=== PATIENT | female | born 1955 ===

== ENCOUNTER 2020-05-09 10:36 | Inpatient (IN) ==
[2020-05-09] MEDS ORDERED: Acetaminophen 325 MG TABLET PO ONE (11:07)
[2020-05-09] MEDS ORDERED: predniSONE 20 MG TABLET PO ONE (11:11)
[2020-05-09] MEDS ORDERED: 0.9 % Sodium Chloride 1,000 ML IVC SCH (11:15)
[2020-05-09 11:23] LABS: Basophils % 0.2 %; Eosinophils # 0.1 K/mcL (0.0-0.6); Eosinophils % 0.9 %; Hematocrit 39.7 % (35.3-44.9); Hemoglobin 12.8 g/dL (11.5-15.4); Immature Granulocytes % 0.4 % (0-4); Lymphocytes # 1.7 K/mcL (0.6-4.6); Lymphocytes % 11.9 %; Mean Corpuscular HGB Conc 32.2 g/dL (31.6-35.5); Mean Corpuscular Hemoglobin 29.7 pg (28.0-33.3); Mean Corpuscular Volume 92.1 fL (83.0-100.0); Mean Platelet Volume 9.6 fL (9.4-12.4); Monocytes # 1.3 K/mcL (0.0-1.3); Monocytes % 9.1 %; Neutrophils # 10.9 K/mcL (1.6-8.9); Platelet Count 260 K/mcL (140-400); Red Blood Count 4.31 M/mcL (3.82-4.97); Red Cell Distribution Width 12.5 % (11.5-14.5); Segmented Neutrophils % 77.5 %
[2020-05-09] MEDS ORDERED: Azithromycin 500 MG in 0.9 % Sodium Chloride 250 ML IVPB ONE (11:26)
[2020-05-09] MEDS ORDERED: cefTRIAXone 1,000 MG in Water for inj. (sterile) 10 ML IVP ONE (11:26)
[2020-05-09 11:31] LABS: INR 1.4; Prothrombin Time 16.4 Seconds (9.4-12.1)
[2020-05-09 11:34] LABS: Activated Partial Thrombo Time 28.4 Seconds (26.0-36.0)
[2020-05-09 11:43] LABS: Alanine Aminotransferase 10 Units/L (7-52); Albumin 3.9 g/dL (3.5-5.7); Albumin/Globulin Ratio 1.3 (1.1-2.2); Alkaline Phosphatase 57 Units/L (34-104); Aspartate Amino Transferase 13 Units/L (13-39); BUN/Creatinine Ratio 16 (6-26); Bilirubin,Direct 0.3 mg/dL (0.0-0.2); Bilirubin,Total 1.3 mg/dL (0.3-1.0); Blood Urea Nitrogen 9 mg/dL (8-23); Calcium 8.9 mg/dL (8.6-10.3); Carbon Dioxide 28 mEq/L (23-29); Chloride 99 mEq/L (98-107); Glucose 152 mg/dL (70-105); Magnesium 1.8 mg/dL (1.6-2.6); Osmolality,Calculated 282 (280-300); Phosphorous 2.3 mg/dL (2.7-4.5); Potassium 3.8 mEq/L (3.5-5.1); Sodium 135 mEq/L (136-145); eGFR For African Americans > 60 (> 60); eGFR For Non-African Americans > 60 (> 60)
[2020-05-09 11:44] LABS: Globulin 3.1 g/dL (2.4-3.5); Troponin I 0.05 ng/mL (< 0.04)
[2020-05-09] MEDS ORDERED: Aspirin 81 MG TAB.CHEW PO ONE (11:46)
[2020-05-09] MEDS ORDERED: 0.9 % Sodium Chloride 1,000 ML IVC ONE (11:46)
[2020-05-09] MEDS ORDERED: 0.9 % Sodium Chloride 250 ML ONE (11:48)
[2020-05-09 12:12] LABS: Bacteria,Urine Few per hpf (None-Few); Bilirubin,Urine Negative (Negative); Blood,Urine Small (Negative); Clarity,Urine Clear (Clear); Color,Urine Light-Orange (Yellow); Glucose,Urine (UA) 30 mg/dL (Normal); Ketones,Urine Negative (Negative); Leukocyte Esterase,Urine Negative (Negative); Mucus,Urine Many per lpf (None-Few); Nitrite,Urine Negative (Negative); Protein,Urine 50 mg/dL (Neg-Trace); Specific Gravity,Urine 1.025 (1.010-1.025); Squamous Epithelial Cell,Urine Few per hpf (None-Few)
[2020-05-09 13:33] LABS: Adenovirus Not Detected (Not Detect); Coronavirus 229E Not Detected (Not Detect); Coronavirus HKU1 Not Detected (Not Detect); Coronavirus NL63 Not Detected (Not Detect); Coronavirus OC43 Not Detected (Not Detect); Human Metapneumovirus Not Detected (Not Detect); Human Rhinovirus/Enterovirus Not Detected (Not Detect); Influenza A Subtype 2009 H1 Not Detected (Not Detect); Influenza B Not Detected (Not Detect); Parainfluenza Virus 1 Not Detected (Not Detect); Parainfluenza Virus 2 Not Detected (Not Detect); Parainfluenza Virus 3 Not Detected (Not Detect)
[2020-05-09 13:34] LABS: Bordetella Pertussis Not Detected (Not Detect); Chlamydophila pneumoniae Not Detected (Not Detect); Mycoplasma pneumoniae Not Detected (Not Detect); Parainfluenza Virus 4 Not Detected (Not Detect); Respiratory Syncytial Virus Not Detected (Not Detect)
[2020-05-09] MEDS ORDERED: Naloxone 0.4 MG/ML INJ IVP PRN (13:42)
[2020-05-09] MEDS ORDERED: Dextrose Gel 15 GM/37.5 ML TUBE PO PRN ×2 (13:50)
[2020-05-09] MEDS ORDERED: D5% in Water 1,000 ML IVC PRN (13:50)
[2020-05-09] MEDS ORDERED: *HR* Dextrose 50 % in Water (Vial) 50 ML VIAL IVP PRN (13:50)
[2020-05-09] MEDS ORDERED: Acetaminophen 325 MG TABLET PO PRN (13:50)
[2020-05-09 15:12] LABS: Estimated Average Glucose 137 mg/dl
[2020-05-09] MEDS: 0.9 % Sodium Chloride 1,000 ML IVC SCH (15:23)
[2020-05-09] MEDS: Ipratropium/Albuterol Neb 3 ML IH SCH ×3 (15:35→23:16)
[2020-05-09] MEDS: *HR* Heparin 5,000 UNIT/ML VIAL SQ SCH (18:03)
[2020-05-09] MEDS: Insulin LISPRO 300 UNITS/3 ML VIAL SQ SCH ×2 (18:03→21:39)
[2020-05-09] MEDS: traZODone 50 MG TABLET PO SCH (21:39)
[2020-05-10] MEDS: Ipratropium/Albuterol Neb 3 ML IH SCH ×6 (03:24→23:34)
[2020-05-10] MEDS: 0.9 % Sodium Chloride 1,000 ML IVC SCH (05:02)
[2020-05-10] MEDS: *HR* Heparin 5,000 UNIT/ML VIAL SQ SCH ×2 (05:02→17:18)
[2020-05-10 06:41] LABS: Basophils % 0.1 %; Eosinophils % 0.4 %; Hematocrit 36.8 % (35.3-44.9); Hemoglobin 11.3 g/dL (11.5-15.4); Immature Granulocytes % 0.5 % (0-4); Lymphocytes # 1.3 K/mcL (0.6-4.6); Lymphocytes % 16.6 %; Mean Corpuscular HGB Conc 30.7 g/dL (31.6-35.5); Mean Corpuscular Hemoglobin 28.6 pg (28.0-33.3); Mean Corpuscular Volume 93.2 fL (83.0-100.0); Mean Platelet Volume 9.4 fL (9.4-12.4); Monocytes # 0.6 K/mcL (0.0-1.3); Monocytes % 7.6 %; Neutrophils # 5.8 K/mcL (1.6-8.9); Platelet Count 207 K/mcL (140-400); Red Blood Count 3.95 M/mcL (3.82-4.97); Red Cell Distribution Width 12.4 % (11.5-14.5); Segmented Neutrophils % 74.8 %; White Blood Count 7.8 K/mcL (4.3-11.1)
[2020-05-10 07:01] LABS: Alanine Aminotransferase 10 Units/L (7-52); Albumin 3.4 g/dL (3.5-5.7); Albumin/Globulin Ratio 1.2 (1.1-2.2); Alkaline Phosphatase 58 Units/L (34-104); Aspartate Amino Transferase 12 Units/L (13-39); BUN/Creatinine Ratio 18 (6-26); Bilirubin,Total 0.5 mg/dL (0.3-1.0); Blood Urea Nitrogen 8 mg/dL (8-23); Calcium 8.5 mg/dL (8.6-10.3); Carbon Dioxide 25 mEq/L (23-29); Chloride 107 mEq/L (98-107); Globulin 2.8 g/dL (2.4-3.5); Glucose 124 mg/dL (70-105); Magnesium 2.1 mg/dL (1.6-2.6); Osmolality,Calculated 292 (280-300); Phosphorous 2.7 mg/dL (2.7-4.5); Potassium 3.9 mEq/L (3.5-5.1); Sodium 141 mEq/L (136-145); Total Protein 6.2 g/dL (6.4-8.9); eGFR For African Americans > 60 (> 60); eGFR For Non-African Americans > 60 (> 60)
[2020-05-10] MEDS: Insulin LISPRO 300 UNITS/3 ML VIAL SQ SCH ×4 (07:33→21:39)
[2020-05-10] MEDS: cefTRIAXone 1,000 MG in Water for inj. (sterile) 10 ML IVP SCH (08:02)
[2020-05-10] MEDS: Azithromycin 250 MG TABLET PO SCH (08:04)
[2020-05-10] MEDS: predniSONE 20 MG TABLET PO SCH (08:04)
[2020-05-10] MEDS ORDERED: predniSONE 10 MG TABLET PO SCH (09:00)
[2020-05-10] MEDS: Budesonide/Formoterol 80/4.5 1 PUFF INH IH SCH (20:06)
[2020-05-10] MEDS: traZODone 50 MG TABLET PO SCH (21:38)
[2020-05-11] MEDS: Ipratropium/Albuterol Neb 3 ML IH SCH ×6 (04:01→23:32)
[2020-05-11 05:39] LABS: White Blood Count 9.5 K/mcL (4.3-11.1)
[2020-05-11 05:40] LABS: Basophils % 0.2 %; Eosinophils # 0.1 K/mcL (0.0-0.6); Eosinophils % 0.8 %; Hemoglobin 11.3 g/dL (11.5-15.4); Immature Granulocytes % 0.5 % (0-4); Lymphocytes # 2.4 K/mcL (0.6-4.6); Lymphocytes % 25.8 %; Mean Corpuscular HGB Conc 31.4 g/dL (31.6-35.5); Mean Corpuscular Hemoglobin 29.1 pg (28.0-33.3); Mean Corpuscular Volume 92.8 fL (83.0-100.0); Mean Platelet Volume 9.3 fL (9.4-12.4); Monocytes # 0.8 K/mcL (0.0-1.3); Neutrophils # 6.1 K/mcL (1.6-8.9); Platelet Count 254 K/mcL (140-400); Red Blood Count 3.88 M/mcL (3.82-4.97); Red Cell Distribution Width 12.5 % (11.5-14.5); Segmented Neutrophils % 64.7 %
[2020-05-11 05:56] LABS: BUN/Creatinine Ratio 24 (6-26); Blood Urea Nitrogen 12 mg/dL (8-23); Carbon Dioxide 24 mEq/L (23-29); Chloride 108 mEq/L (98-107); Glucose 88 mg/dL (70-105); Osmolality,Calculated 291 (280-300); Potassium 3.4 mEq/L (3.5-5.1); Sodium 141 mEq/L (136-145); eGFR For African Americans > 60 (> 60); eGFR For Non-African Americans > 60 (> 60)
[2020-05-11] MEDS: *HR* Heparin 5,000 UNIT/ML VIAL SQ SCH ×2 (06:12→16:50)
[2020-05-11] MEDS: Budesonide/Formoterol 80/4.5 1 PUFF INH IH SCH ×2 (07:29→19:50)
[2020-05-11] MEDS: Azithromycin 250 MG TABLET PO SCH (08:23)
[2020-05-11] MEDS: predniSONE 20 MG TABLET PO SCH (08:24)
[2020-05-11] MEDS: cefTRIAXone 1,000 MG in Water for inj. (sterile) 10 ML IVP SCH (08:24)
[2020-05-11] MEDS: Insulin LISPRO 300 UNITS/3 ML VIAL SQ SCH ×4 (08:28→21:26)
[2020-05-11] MEDS: traZODone 50 MG TABLET PO SCH (21:23)
[2020-05-12] MEDS: Ipratropium/Albuterol Neb 3 ML IH SCH ×2 (03:46→07:20)
[2020-05-12 04:54] LABS: Basophils % 0.3 %; Eosinophils % 0.6 %; Hematocrit 35.5 % (35.3-44.9); Immature Granulocytes % 1.1 % (0-4); Lymphocytes # 1.7 K/mcL (0.6-4.6); Lymphocytes % 23.8 %; Mean Corpuscular Hemoglobin 28.2 pg (28.0-33.3); Mean Platelet Volume 9.1 fL (9.4-12.4); Monocytes # 0.4 K/mcL (0.0-1.3); Neutrophils # 4.8 K/mcL (1.6-8.9); Platelet Count 228 K/mcL (140-400); Red Cell Distribution Width 12.7 % (11.5-14.5); Segmented Neutrophils % 68.2 %
[2020-05-12 05:14] LABS: BUN/Creatinine Ratio 22 (6-26); Blood Urea Nitrogen 11 mg/dL (8-23); Calcium 8.6 mg/dL (8.6-10.3); Carbon Dioxide 22 mEq/L (23-29); Chloride 108 mEq/L (98-107); Glucose 116 mg/dL (70-105); Osmolality,Calculated 292 (280-300); Potassium 3.3 mEq/L (3.5-5.1); Sodium 141 mEq/L (136-145); eGFR For African Americans > 60 (> 60); eGFR For Non-African Americans > 60 (> 60)
[2020-05-12] MEDS: *HR* Heparin 5,000 UNIT/ML VIAL SQ SCH (05:45)
[2020-05-12] MEDS: Budesonide/Formoterol 80/4.5 1 PUFF INH IH SCH ×2 (07:20→19:56)
[2020-05-12] MEDS: Insulin LISPRO 300 UNITS/3 ML VIAL SQ SCH ×4 (08:14→20:28)
[2020-05-12] MEDS: Azithromycin 250 MG TABLET PO SCH (08:28)
[2020-05-12] MEDS: predniSONE 20 MG TABLET PO SCH (08:28)
[2020-05-12] MEDS: cefTRIAXone 1,000 MG in Water for inj. (sterile) 10 ML IVP SCH (08:29)
[2020-05-12] MEDS ORDERED: Potassium Phosphate 44 MEQ in 0.9 % Sodium Chloride 250 ML IVPB ONE (08:51)
[2020-05-12] MEDS ORDERED: Ipratropium/Albuterol Neb 3 ML IH PRN (10:08)
[2020-05-12 10:18] LABS: Magnesium 2.1 mg/dL (1.6-2.6)
[2020-05-12] MEDS ORDERED: Perflutren Lipid Microsphere 1.3 ML in 0.9 % Sodium Chloride 8.7 ML IVP PRN (11:01)
[2020-05-12] MEDS ORDERED: Isovue-370 500 ML BOTTLE IVP ONE (13:35)
[2020-05-12] MEDS ORDERED: Furosemide 40 MG/4 ML VIAL IVP ONE (15:46)
[2020-05-12] MEDS ORDERED: Nitroglycerin 0.4 MG TAB.SUBL SL PRN (16:09)
[2020-05-12] MEDS ORDERED: Aspirin 325 MG TABLET PO ONE (16:11)
[2020-05-12] MEDS: *HR* Enoxaparin 100 MG/ML SYRINGE SQ SCH (18:17)
[2020-05-12] MEDS: traZODone 50 MG TABLET PO SCH (20:32)
[2020-05-12] MEDS ORDERED: Furosemide 20 MG TABLET PO ONE (22:00)
[2020-05-13 02:01] LABS: Basophils % 0.4 %; Eosinophils # 0.1 K/mcL (0.0-0.6); Eosinophils % 0.7 %; Hemoglobin 11.4 g/dL (11.5-15.4); Immature Granulocytes % 1.3 % (0-4); Lymphocytes # 2.5 K/mcL (0.6-4.6); Lymphocytes % 27.2 %; Mean Corpuscular HGB Conc 30.8 g/dL (31.6-35.5); Mean Corpuscular Hemoglobin 28.4 pg (28.0-33.3); Mean Platelet Volume 9.2 fL (9.4-12.4); Monocytes # 0.7 K/mcL (0.0-1.3); Monocytes % 7.5 %; Neutrophils # 5.7 K/mcL (1.6-8.9); Platelet Count 282 K/mcL (140-400); Red Blood Count 4.02 M/mcL (3.82-4.97); Red Cell Distribution Width 12.6 % (11.5-14.5); Segmented Neutrophils % 62.9 %; White Blood Count 9.1 K/mcL (4.3-11.1)
[2020-05-13 02:19] LABS: BUN/Creatinine Ratio 23 (6-26); Blood Urea Nitrogen 14 mg/dL (8-23); Carbon Dioxide 29 mEq/L (23-29); Chloride 104 mEq/L (98-107); Glucose 107 mg/dL (70-105); Osmolality,Calculated 295 (280-300); Potassium 3.6 mEq/L (3.5-5.1); Sodium 142 mEq/L (136-145); eGFR For African Americans > 60 (> 60); eGFR For Non-African Americans > 60 (> 60)
[2020-05-13] MEDS: *HR* Enoxaparin 100 MG/ML SYRINGE SQ SCH ×2 (06:13→17:00)
[2020-05-13] MEDS: Budesonide/Formoterol 80/4.5 1 PUFF INH IH SCH ×2 (07:23→19:58)
[2020-05-13] MEDS: Insulin LISPRO 300 UNITS/3 ML VIAL SQ SCH ×4 (08:02→21:09)
[2020-05-13] MEDS: predniSONE 20 MG TABLET PO SCH (08:03)
[2020-05-13] MEDS: Furosemide 40 MG TABLET PO SCH ×2 (08:04→21:13)
[2020-05-13] MEDS: Azithromycin 250 MG TABLET PO SCH (08:04)
[2020-05-13] MEDS: cefTRIAXone 1,000 MG in Water for inj. (sterile) 10 ML IVP SCH (08:04)
[2020-05-13] MEDS: Aspirin 81 MG TAB.CHEW PO SCH (14:04)
[2020-05-13] MEDS: carvediloL 6.25 MG TABLET PO SCH (16:57)
[2020-05-13] MEDS: traZODone 50 MG TABLET PO SCH (21:13)
[2020-05-14] MEDS: *HR* Enoxaparin 100 MG/ML SYRINGE SQ SCH ×2 (05:15→17:32)
[2020-05-14 07:50] LABS: Basophils % 0.3 %; Eosinophils # 0.1 K/mcL (0.0-0.6); Eosinophils % 1.2 %; Hematocrit 35.8 % (35.3-44.9); Hemoglobin 11.2 g/dL (11.5-15.4); Immature Granulocytes % 1.3 % (0-4); Lymphocytes # 3.7 K/mcL (0.6-4.6); Lymphocytes % 35.1 %; Mean Corpuscular HGB Conc 31.3 g/dL (31.6-35.5); Mean Corpuscular Hemoglobin 28.7 pg (28.0-33.3); Mean Corpuscular Volume 91.8 fL (83.0-100.0); Mean Platelet Volume 9.1 fL (9.4-12.4); Monocytes # 0.7 K/mcL (0.0-1.3); Monocytes % 6.4 %; Neutrophils # 5.8 K/mcL (1.6-8.9); Platelet Count 279 K/mcL (140-400); Red Cell Distribution Width 12.8 % (11.5-14.5); Segmented Neutrophils % 55.7 %; White Blood Count 10.5 K/mcL (4.3-11.1)
[2020-05-14] MEDS: Insulin LISPRO 300 UNITS/3 ML VIAL SQ SCH ×4 (07:54→20:54)
[2020-05-14] MEDS: Aspirin 81 MG TAB.CHEW PO SCH (07:55)
[2020-05-14] MEDS: predniSONE 20 MG TABLET PO SCH (07:55)
[2020-05-14] MEDS: Azithromycin 250 MG TABLET PO SCH (07:55)
[2020-05-14] MEDS: Furosemide 40 MG TABLET PO SCH (07:55)
[2020-05-14] MEDS: carvediloL 6.25 MG TABLET PO SCH ×2 (07:55→17:29)
[2020-05-14] MEDS: cefTRIAXone 1,000 MG in Water for inj. (sterile) 10 ML IVP SCH (07:56)
[2020-05-14] MEDS: Budesonide/Formoterol 80/4.5 1 PUFF INH IH SCH ×2 (08:03→20:08)
[2020-05-14 08:10] LABS: BUN/Creatinine Ratio 28 (6-26); Blood Urea Nitrogen 17 mg/dL (8-23); Calcium 9.1 mg/dL (8.6-10.3); Carbon Dioxide 30 mEq/L (23-29); Chloride 102 mEq/L (98-107); Glucose 135 mg/dL (70-105); Osmolality,Calculated 298 (280-300); Potassium 2.7 mEq/L (3.5-5.1); Sodium 142 mEq/L (136-145); eGFR For African Americans > 60 (> 60); eGFR For Non-African Americans > 60 (> 60)
[2020-05-14] MEDS: Spironolactone 25 MG TABLET PO SCH (10:09)
[2020-05-14] MEDS: lisinopriL 5 MG TABLET PO SCH (17:28)
[2020-05-14] MEDS: Furosemide 40 MG/4 ML VIAL IVP SCH (17:28)
[2020-05-14] MEDS: traZODone 50 MG TABLET PO SCH (21:00)
[2020-05-15] MEDS: *HR* Enoxaparin 100 MG/ML SYRINGE SQ SCH ×2 (05:10→18:18)
[2020-05-15 05:42] LABS: Hematocrit 36.9 % (35.3-44.9); Hemoglobin 11.6 g/dL (11.5-15.4); Mean Corpuscular HGB Conc 31.4 g/dL (31.6-35.5); Mean Corpuscular Hemoglobin 29.4 pg (28.0-33.3); Mean Corpuscular Volume 93.7 fL (83.0-100.0); Mean Platelet Volume 9.2 fL (9.4-12.4); Platelet Count 286 K/mcL (140-400); Red Blood Count 3.94 M/mcL (3.82-4.97); Red Cell Distribution Width 12.6 % (11.5-14.5); White Blood Count 9.7 K/mcL (4.3-11.1)
[2020-05-15 06:01] LABS: BUN/Creatinine Ratio 30 (6-26); Blood Urea Nitrogen 18 mg/dL (8-23); Carbon Dioxide 30 mEq/L (23-29); Chloride 104 mEq/L (98-107); Glucose 96 mg/dL (70-105); Osmolality,Calculated 298 (280-300); Potassium 3.6 mEq/L (3.5-5.1); Sodium 143 mEq/L (136-145); eGFR For African Americans > 60 (> 60); eGFR For Non-African Americans > 60 (> 60)
[2020-05-15] MEDS: Budesonide/Formoterol 80/4.5 1 PUFF INH IH SCH ×2 (07:18→22:35)
[2020-05-15] MEDS: Insulin LISPRO 300 UNITS/3 ML VIAL SQ SCH ×4 (09:21→21:01)
[2020-05-15] MEDS: Furosemide 40 MG/4 ML VIAL IVP SCH (09:56)
[2020-05-15] MEDS: carvediloL 6.25 MG TABLET PO SCH ×2 (09:57→18:18)
[2020-05-15] MEDS: cefTRIAXone 1,000 MG in Water for inj. (sterile) 10 ML IVP SCH (09:57)
[2020-05-15] MEDS: predniSONE 20 MG TABLET PO SCH (09:57)
[2020-05-15] MEDS: Azithromycin 250 MG TABLET PO SCH (09:58)
[2020-05-15] MEDS: lisinopriL 5 MG TABLET PO SCH (09:58)
[2020-05-15] MEDS: Spironolactone 25 MG TABLET PO SCH (09:58)
[2020-05-15] MEDS: Aspirin 81 MG TAB.CHEW PO SCH (09:58)
[2020-05-15] MEDS ORDERED: MOM Conc 10 ML UD.LIQ PO PRN (10:16)
[2020-05-15] MEDS: Furosemide 20 MG/2 ML VIAL IVP SCH (18:18)
[2020-05-15] MEDS: traZODone 50 MG TABLET PO SCH (21:02)
[2020-05-16] MEDS: *HR* Enoxaparin 100 MG/ML SYRINGE SQ SCH ×2 (04:43→16:57)
[2020-05-16 05:23] LABS: Hematocrit 38.1 % (35.3-44.9); Mean Corpuscular HGB Conc 31.5 g/dL (31.6-35.5); Mean Corpuscular Hemoglobin 28.8 pg (28.0-33.3); Mean Corpuscular Volume 91.6 fL (83.0-100.0); Mean Platelet Volume 9.1 fL (9.4-12.4); Platelet Count 306 K/mcL (140-400); Red Blood Count 4.16 M/mcL (3.82-4.97); Red Cell Distribution Width 12.8 % (11.5-14.5); White Blood Count 10.2 K/mcL (4.3-11.1)
[2020-05-16 05:43] LABS: BUN/Creatinine Ratio 36 (6-26); Blood Urea Nitrogen 21 mg/dL (8-23); Calcium 9.2 mg/dL (8.6-10.3); Carbon Dioxide 29 mEq/L (23-29); Chloride 103 mEq/L (98-107); Glucose 120 mg/dL (70-105); Osmolality,Calculated 292 (280-300); Potassium 4.1 mEq/L (3.5-5.1); Sodium 139 mEq/L (136-145); eGFR For African Americans > 60 (> 60); eGFR For Non-African Americans > 60 (> 60)
[2020-05-16] MEDS: Budesonide/Formoterol 80/4.5 1 PUFF INH IH SCH ×2 (07:42→19:53)
[2020-05-16] MEDS: Insulin LISPRO 300 UNITS/3 ML VIAL SQ SCH ×4 (09:06→20:30)
[2020-05-16] MEDS: cefTRIAXone 1,000 MG in Water for inj. (sterile) 10 ML IVP SCH (09:17)
[2020-05-16] MEDS: Furosemide 20 MG/2 ML VIAL IVP SCH ×2 (09:17→16:59)
[2020-05-16] MEDS: predniSONE 20 MG TABLET PO SCH (09:18)
[2020-05-16] MEDS: lisinopriL 5 MG TABLET PO SCH (09:18)
[2020-05-16] MEDS: Spironolactone 25 MG TABLET PO SCH (09:18)
[2020-05-16] MEDS: carvediloL 6.25 MG TABLET PO SCH ×2 (09:18→16:58)
[2020-05-16] MEDS: Aspirin 81 MG TAB.CHEW PO SCH (09:18)
[2020-05-16] MEDS ORDERED: 0.9 % Sodium Chloride 1,000 ML ONE (12:05)
[2020-05-16] MEDS ORDERED: ISOVUE-370 200 ML INFUS..BTL ONE (12:05)
[2020-05-16] MEDS ORDERED: Nitroglycerin 1,000 MCG/10 ML VIAL IV ONE (12:05)
[2020-05-16] MEDS ORDERED: *HR* Heparin 10,000 UNIT/10 ML VIAL ONE (12:05)
[2020-05-16] MEDS ORDERED: Heparin 1,000 UNITS/500 mL 500 ML ONE (12:05)
[2020-05-16] MEDS ORDERED: *HR* Midazolam HCl 2 MG/2 ML VIAL ONE (13:10)
[2020-05-16] MEDS ORDERED: *HR* FentaNYL (PF) 100 MCG/2 ML VIAL ONE (13:10)
[2020-05-16] MEDS: traZODone 50 MG TABLET PO SCH (20:30)
[2020-05-17] MEDS: *HR* Enoxaparin 100 MG/ML SYRINGE SQ SCH (04:54)
[2020-05-17 06:03] LABS: Hematocrit 37.3 % (35.3-44.9); Hemoglobin 11.8 g/dL (11.5-15.4); Mean Corpuscular HGB Conc 31.6 g/dL (31.6-35.5); Mean Corpuscular Hemoglobin 28.9 pg (28.0-33.3); Mean Corpuscular Volume 91.2 fL (83.0-100.0); Platelet Count 300 K/mcL (140-400); Red Blood Count 4.09 M/mcL (3.82-4.97); Red Cell Distribution Width 12.9 % (11.5-14.5); White Blood Count 11.1 K/mcL (4.3-11.1)
[2020-05-17 06:23] LABS: BUN/Creatinine Ratio 35 (6-26); Blood Urea Nitrogen 22 mg/dL (8-23); Carbon Dioxide 27 mEq/L (23-29); Chloride 103 mEq/L (98-107); Glucose 149 mg/dL (70-105); Osmolality,Calculated 290 (280-300); Potassium 4.2 mEq/L (3.5-5.1); Sodium 137 mEq/L (136-145); eGFR For African Americans > 60 (> 60); eGFR For Non-African Americans > 60 (> 60)
[2020-05-17 07:15] VITALS: BP 116/78
[2020-05-17] MEDS: Budesonide/Formoterol 80/4.5 1 PUFF INH IH SCH (07:16)
[2020-05-17] MEDS ORDERED: predniSONE 20 MG TABLET PO SCH (09:00)
[2020-05-17] MEDS: Insulin LISPRO 300 UNITS/3 ML VIAL SQ SCH (09:18)
[2020-05-17] MEDS: Furosemide 20 MG/2 ML VIAL IVP SCH (09:24)
[2020-05-17] MEDS: Aspirin 81 MG TAB.CHEW PO SCH (09:24)
[2020-05-17] MEDS: carvediloL 6.25 MG TABLET PO SCH (09:24)
[2020-05-17] MEDS: Spironolactone 25 MG TABLET PO SCH (09:25)
[2020-05-17] MEDS: lisinopriL 5 MG TABLET PO SCH (09:25)
== END 2020-05-17 11:18 | disposition home or self-care (01) | DRG 871 ==
LOC: EMEROOARM 10:36 → 3ANU 10:36 → SUATTDRO 13:43 → 3ANU 14:42 → 2ANU 05-16 14:13
PROVIDERS: ADMIT Internal Medicine; ATTEND Internal Medicine